=== PATIENT | female | born 1970 | race African-American/Black ===

== ENCOUNTER 2016-12-12 18:18 | Emergency (ER) | payer OTHER ==
[~2016-12-12] VITALS: Ht 162.6 cm; Wt 49.9 kg
[2016-12-12] MEDS ORDERED: LORazepam 0.5 MG TAB PO ONE (19:00)
[2016-12-12 19:19] VITALS: BP 147/98
== END 2016-12-12 19:27 | disposition home or self-care (01) ==
LOC: ER 18:28
DX: R51 Headache (principal); J45.909 Unspecified asthma, uncomplicated
CPT/HCPCS: 70450